=== PATIENT | male | born 1945 | race Caucasian/White ===

== ENCOUNTER 2020-07-10 06:46 | Emergency (ER) | payer MEDICARE, SELFPAY ==
[2020-07-10 07:43] VITALS: PULSE 71; RESP 19; TEMP 37.2; O2SAT 97; BMI 30.9
--- NOTE | 2020-07-10 08:48 | ED.GENADULT ---
HPI - General Adult General Chief complaint: Wound/Laceration Stated complaint: cyst rupture Time Seen by Provider: 07/10/20 07:52 Source: patient Mode of arrival: ambulatory Limitations: no limitations History of Present Illness HPI narrative: 75-year-old male who presents emergency department for evaluation of an abscess to his chest. Patient states he had a cyst over the sternal area of his chest for many years, he states that approximately 4-5 days prior to coming to the emergency department the cyst became painful, red and swollen and tripled in size. He states that he schedule appointment to see a surgeon at [facility] but over the last 24 hours the cyst began to drain therefore he came to the emergency department today for evaluation. He denied systemic symptoms such as fever, chills, weakness, fatigue, chest pain, shortness of breath, cough. The patient has had no COVID-19 symptoms. He has not had COVID-19 a has not been vaccinated. Related Data Previous Rx's Medication Instructions Recorded cefadroxil 1,000 mg PO Q12H 7 Days #28 cap 07/10/20 Allergies Allergy/AdvReac Type Severity Reaction Status Date / Time No Known Allergies Allergy Verified 07/10/20 08:08 Review of Systems Review of Systems: Yes all other systems are reviewed and are negative Neurologic: Reports Abnormal speech present [facility] Past Medical History [facility] Narrative: Patient has no past medical history, he denies tobacco, alcohol and drug use. Medical History (Updated 07/10/20 @ 08:57 by Gurjit Hendricks MD) BPH (benign prostatic hyperplasia) Social History Social History Advance Directives: No Advance Directives Information Provided: No Physical Exam Vital Signs: Vital Signs: Last Vital Signs Temp 99 F 07/10/20 07:43 Pulse 71 07/10/20 07:43 Resp 19 07/10/20 07:43 Pulse Ox 97 07/10/20 07:43 Body Mass Index 30.9 Const: General: cooperative and healthy appearing Orientation/consciousness: oriented to person and oriented to place Limitations: no limitations HENMT: Head: Yes normal to inspection, Yes normocephalic and Yes atraumatic Ears: external ears normal General nose exam: Normal external nose present Face and sinus: Yes normal facial exam Mouth: Normal oral and palatal mucosa present Throat: Yes posterior oropharynx normal Eyes: Periorbital: periorbital findings normal Eyelids: Yes eyelids normal Conjunctivae: conjunctivae normal Sclerae: sclerae normal Corneas: corneas normal Pupils: Equal, round and reactive pupils present Direct Ophthalmoscopy: normal light reflex Neck: Neck: Yes full ROM, Yes no lymphadenopathy, Yes no meningeal signs, Yes trachea midline and Yes supple Chest: Other: There is a large 10 x 8 cm abscess to the mid sternum, the lower margin is draining pus, there is surrounding erythema that is warm to the touch. The abscess is flocculent. Chest palpation & inspection: normal palpation of entire chest wall Resp: Effort & Inspection: normal respiratory effort and able to speak in complete sentences Auscultation: clear to auscultation bilaterally Cardio: Rate: regular rate Rhythm: regular rhythm Heart sounds: S1 normal heart sound present, S2 normal heart sound present and no murmurs GI: Inspection: Yes normal to inspection Palpation (GI): Soft to palpation, nontender, no guarding, not rigid and No hepatosplenomegaly present : General: Yes no CVA tenderness Back/Spine/Pelvis: Back: no CVA tenderness Cervical Spine: normal cervical lordosis Thoracic/Lumbar Spine: thoracic and lumbar spine normal to inspection Skin: Lesions: no lesions Rashes: no rashes Wounds: no wounds Neuro: General: oriented to person, oriented to place and no meningeal signs Cranial nerves: Yes Equal, round and reactive pupils present Cognition (Neuro): normal cognition Speech: Abnormal speech present Motor exam (neuro): 5/5 motor strength present throughout Extrem: General: Yes normal to inspection and Yes full ROM Psych: Appearance: well kempt Mental Status: mental status grossly normal Speech and movement: Normal speech and movement present Affect: normal affect Attitude: cooperative Thought process: Normal thought process present Thought content: Normal thought content present Course Course Course Narrative: 75-year-old male who presents emergency department for evaluation of an abscess to his mid sternal chest wall which has surrounding erythema and is draining purulent material. The abscess was incised drained and packed. The patient had approximately 60 cc of purulent material that was expressed from the abscess, the cavity was irrigated and suction was used to clean out the cavity. The cavity was packed with 1 in iodoform gauze packing. The patient will need to follow-up in 3-4 days with the on-call surgeon or his surgeon at [facility] for re-evaluation and packing removal. He was given a dose of Ancef 2 g IV and a wound culture was sent. Patient will be started on cefadroxil 1 g q.12 hours x7 days. The patient did not know when his last tetanus shot was given therefore he was given a Tdap. Discharge Plan Discharge Clinical Impression: Abscess, Encounter for incision and drainage procedure, Need for [id number] (Tdap) vaccine Patient Disposition: Home, Self-Care Instructions: Abscess (ED), Abscess Incision and Drainage (DC) Additional Instructions: You had a large abscess which was incised, drained, irrigated and packed with iodoform gauze packing. You need a wound check and packing removal on Tuesday07/14/2020 by either your surgeon at [facility] or by our on-call surgeon. You received Ancef 2 g IV, this is a good antibiotic for skin infections. Take Duricef (cefadroxil) 500 mg pills, 2 pills every 12 hours. Take your 1st dose today at 6:00 p.m. and then take the medicine twice a day at 6:00 a.m. and 6:00 p.m.. Take ibuprofen 200 mg pills, 3 pills every 6 hours as needed for pain. Take Tylenol (acetaminophen) 500 mg pills, 2 pills every 4 to 6 hours as needed for pain. Follow-up with your surgeon or our on-call surgeon in 4 days. Please return to the emergency department if your symptoms get worse or if you develop any symptoms that are concerning to you. Prescriptions: New cefadroxil 500 mg capsule 1,000 mg PO Q12H 7 Days Qty: 28 RF: 0 Referrals: Rebecca Santiago MD [Physician] - 07/14/20 (Large abscess to sternum, incised, drained, irrigated and packed, started on cefadroxil 1000 mg q.12 x7 days, needs recheck and packing removal)
[2020-07-10] MEDS: Lidocaine HCl 1 % MPF 5 ML VIAL INFILTRATI ×2 (09:12)
[2020-07-10] MEDS: ceFAZolin Sodium/Dextrose,Iso 2 GM/50 ML PIGGYBACK IV (09:13)
--- NOTE | 2020-07-10 09:36 | PC.NURSE ---
i and d done w pt's abscess, pt tolerated well, medicated aS ORDERED , wound marked w pen, d/c inst reviewed w pt, pt has ancef still infusing, nad
== END 2020-07-10 10:15 | disposition home or self-care (01) ==
PROVIDERS: Emergency Provider Emergency Medicine Emergency Medical Services; PCP Internal Medicine
DX: L02.213 Cutaneous abscess of chest wall (principal)
CPT/HCPCS: 10060; 87071; 87205; 90471; 90715; 96365; 96368; 99283; 99284; J0690

== ENCOUNTER 2023-04-05 09:22 | Outpatient (AMB) | payer MEDICARE, SELFPAY ==
[2023-04-05 10:50] VITALS: BP 160/80; PULSE 60; TEMP 36.3; O2SAT 97; BMI 31.6
--- NOTE | 2023-04-05 10:50 | MHC.OFFWIV ---
Intake Vital Signs 04/05/23 10:50 Height 5 ft 10 in Weight 99.79 kg BMI 31.6 BP 160/80 H Blood Pressure Location Rt brachial Position Sitting Pulse 60 Pulse Source Pulse Oximeter Temp 97.4 F Temp Source Oral Pulse Oximetry (%) 97 Intake Visit Reasons: EP Nasal drip [id number] Intake Note: pt is here for c/o nasal drip, congestion Allergies No Known Allergies Allergy (Verified 04/05/23 10:53) Do you need a note to return to daycare/school/sports/work: No HPI HPI Comments History of Present Illness Details 1133 78-year-old male presents with a runny nose for the past few weeks, not improving despite saline sprays, [id number] meds. Denies any other symptoms. Denies fevers, chills, chest pain, shortness of breath, cough, sore throat, recent sick contacts, nausea, vomiting, chest pain and shortness of breath Physical exam benign Likely viral illness versus allergies. Plan at this time viral testing. Will discharge him with loratadine and prednisone. Educated patient on diagnosis and treatment plan, answered all question, patient verbalizes understanding. At this time patient will be discharged home, advised to return with new or worsening symptoms. Educated on worrisome signs and symptoms and when to return. At this time I feel comfortable discharge home. [facility] Medical History BPH (benign prostatic hyperplasia) Review of Systems Const Details: Constitutional : No Weight loss, No Fever, No Chills, No Fatigue, No Malaise ENT/Mouth : No sore throat, + Rhinorrhea Eyes: No Eye Pain, No Swelling, No Redness Cardiovascular : No Chest Pain, No SOB, No Dyspnea on Exertion, No Orthopnea, No Edema, No Palpitations Respiratory : No Cough, No Sputum, No Wheezing Gastrointestinal : No Nausea, No Vomiting, No Diarrhea, No Constipation, No abdominal Pain, No Hematochezia, No Melena Genitourinary : No Dysuria, No Urinary Frequency, No Hematuria, Musculoskeletal : No joint pain, No Myalgias, No Joint Swelling Skin : No Skin Lesions, No rash Neuro : No Weakness, No Numbness, No Dizziness, No Headache Psych : No Anxiety/Panic, No Depression All other systems reviewed and are negative All systems reviewed & are unremarkable except as noted in HPI and below Physical Exam Vital Signs: Last Vital Signs Temp 97.4 F 04/05/23 10:50 Pulse 60 04/05/23 10:50 BP 160/80 H 04/05/23 10:50 Pulse Ox 97 04/05/23 10:50 BMI result Body Mass Index 31.6 vss Appearance: Alert.? Oriented X3.? No acute distress.? Head: Normocephalic, atraumatic, no step-offs or deformities Eyes: Pupils equal, round and reactive to light.? ENT: Pharynx normal.? Neck: Normal inspection.? Neck supple.? CVS: Normal heart rate and rhythm.? Pulses normal.? Respiratory: No respiratory distress.? Breath sounds normal.? Skin: Skin warm and dry.? Normal skin color.? Normal skin turgor.? Extremities: No lower extremity edema.? No calf ttp. 5/5 strength to bilateral upper and lower extremities Neuro: Oriented X 3.? No motor deficit.? No sensory deficit. CN 2-12 intact Assessment & Plan Assessment & Plan (1) Post-nasal drainage: Code(s): R09.82 - Postnasal drip (2) Rhinorrhea: Code(s): J34.89 - Other specified disorders of nose and nasal sinuses Plan Take your medications as prescribed. If you were prescribed antibiotics today, it is important that you take your medication to their entirety, do not skip any doses, do not finish them early. Follow-up with your primary care provider this week. Return to the emergency department with new or worsening symptoms. Such as fevers, chills, chest pain, shortness of breath, nausea, vomiting, dizziness, headache, vision changes, lethargy In case of emergency call 911 Orders: Orders SARS-CoV2/FLU/RSV Today B34.9 - Viral infection, unspecified Medications: New loratadine (Allergy Relief (loratadine)) 10 mg PO DAILY 30 tabs 0RF fluticasone propionate 50 mcg/actuation (Flonase Allergy Relief) administer into each nostril 1 spray intranasal BID 16 grams 0RF Coding Level of Care Code Est Pt Level 3 (96547) Diagnoses Post-nasal drainage R09.82 Rhinorrhea J34.89
== END 2023-04-05 11:52 | disposition home or self-care (01) ==
PROVIDERS: PCP Internal Medicine; Visit Provider Physician Assistant
DX: R09.82 Postnasal drip (principal); J34.89 Other specified disorders of nose and nasal sinuses
CPT/HCPCS: 99213

== ENCOUNTER 2023-04-05 13:54 | Outpatient (REF) | payer MEDICARE, SELFPAY ==
[2023-04-05 16:20] LABS: Influenza A PCR NEGATIVE (Negative); Influenza B PCR NEGATIVE (Negative); Resp Syncy Virus RNA Qual PCR NEGATIVE (Negative); SARS COV2 PCR INHOUSE NEGATIVE (Negative)
== END 2023-04-05 13:55 | disposition home or self-care (01) ==
LOC: HO.LNP 13:54
PROVIDERS: Visit Provider Physician Assistant
DX: Z11.52 Encounter for screening for COVID-19 (principal); Z20.822 Contact with and (suspected) exposure to COVID-19; B34.9 Viral infection, unspecified
CPT/HCPCS: 0241U

== ENCOUNTER 2023-11-22 08:07 | Outpatient (AMB) | payer MEDICARE, SELFPAY ==
--- NOTE | 2023-11-22 08:08 | AM.OFFWIN_ITS ---
Intake Vital Signs 11/22/23 08:11 Height 5 ft 10 in BP 170/80 H Blood Pressure Location Lt brachial Position Sitting Pulse 76 Pulse Source Pulse Oximeter Temp 97.9 F Temp Source Oral Pulse Oximetry (%) 98 Intake Visit Reasons: Fluttering feeling around heart Intake Note: pt is here for fluttering feeling around heart Patient Tobacco Use Status: Never used Tobacco Allergies No Known Allergies Allergy (Verified 11/22/23 08:12) Do you need a note to return to daycare/school/sports/work: No HPI HPI Comments History of Present Illness Details 78-year-old male presents today complain ing of a flutter on the left side of his chest. He states it started 24 hours ago. He denies chest pain shortness of breath diaphoresis nausea or vomiting. Denies any upper respiratory symptoms. Does relate having discontinued his gabapentin 300 mg suddenly last week. States it felt it was not helping him so he just stopped taking it PFSH Medical History BPH (benign prostatic hyperplasia) Social History Patient Tobacco Use Status: Never used Tobacco Review of Systems Const All systems reviewed & are unremarkable except as noted in HPI and below Eyes Reports no additional complaints ENT Reports no additional complaints Card Reports no additional complaints Resp Reports no additional complaints GI Reports no additional complaints Physical Exam Vital Signs: Last Vital Signs Temp 97.9 F 11/22/23 08:11 Pulse 76 11/22/23 08:11 BP 170/80 H 11/22/23 08:11 Pulse Ox 98 11/22/23 08:11 HEENT Head: Yes normal to inspection, Yes normocephalic and Yes atraumatic Ears: hearing grossly normal bilaterally General nose exam: Normal external nose present Face and sinus: Yes normal facial exam Eyes General: appearance normal, both eyes and all related structures Chest Chest palpation & inspection: normal inspection of the chest and normal palpation of entire chest wall Resp Effort & Inspection: normal respiratory effort and able to speak in complete sentences Auscultation: clear to auscultation bilaterally Cardio Jugular venous distension: no JVD Palpation: normal PMI Rate: regular rate Rhythm: regular rhythm Heart sounds: Murmur heart sound present systolic Peripheral pulses: Peripheral pulses 2+ throughout GI Inspection: Yes normal to inspection (muscle wall herniation midline.) Auscultation: normal bowel sounds Results Reviewed Results Reviewed: EKG completed in the office today was negative for OK. Assessment & Plan Assessment & Plan (1) Palpitations with regular cardiac rhythm: Code(s): R00.2 - Palpitations Plan: See plan Plan The patient will contact his PCP for follow up of the palpitations. He will call 911 if he develops severe chest pain or shortness of breath Coding Level of Care Code Est Pt Level 3 (82648) Diagnoses Palpitations with regular cardiac rhythm R00.2
[2023-11-22 08:11] VITALS: BP 170/80; PULSE 76; TEMP 36.6; O2SAT 98
== END 2023-11-22 10:07 | disposition home or self-care (01) ==
PROVIDERS: PCP Internal Medicine; Visit Provider Physician Assistant Medical
DX: R00.2 Palpitations (principal)
CPT/HCPCS: 99213